=== PATIENT | male | born 1950 | race Caucasian/White ===

== ENCOUNTER → 2020-01-16 15:36 | Outpatient (CLI) | payer MEDICARE, SELFPAY ==
--- NOTE | 2020-01-16 | DI.MRI.S_ITS ---
PROCEDURE: MR KNEE LT WO CON INDICATIONS: internal derangement of left knee TECHNIQUE: Noncontrast sagittal PD fast spin echo and T2 fast spin echo with fat saturation, sagittal 3-D FLASH with fat saturation; coronal T1 spin echo and PD fast spin echo with fat saturation, and axial PD fast spin echo with fat saturation through the knee. COMPARISON: None. FINDINGS: Image quality: Excellent. Menisci: There is mild intrasubstance degeneration and free edge fibrillation and the body of the medial meniscus without a definite tear. Intrasubstance degeneration is also seen in the body of the lateral meniscus without definite extension to an articular surface. There is no significant meniscal extrusion. Cruciate ligaments: There is mild mucoid degeneration of the anterior cruciate ligament. The posterior cruciate ligament is intact. Medial structures: The medial collateral ligament appears intact. The semimembranosus tendon insertions and meniscocapsular junction appear intact. Visualized portions of the pes anserinus tendons appear normal. No abnormal bursal fluid. Lateral structures: The lateral collateral ligament, long and short heads of the biceps femoris tendon appear intact. The popliteus tendon appears intact. No signs of posterolateral corner injury. Iliotibial band appears normal. Anterior structures: The quadriceps and patellar tendons appear intact. Patellar alignment is normal. No femoral trochlear dysplasia or ventral trochlear prominence. No edema in the infrapatellar fat pad. Bones and cartilage: No acute trabecular bone injury. Mild generalized partial thickness cartilage thinning is seen in the weight-bearing portion of the medial femorotibial compartment. The lateral compartment articular cartilage is maintained. Full-thickness cartilage loss is seen in the lateral femoral trochlea with subchondral cystic changes. Additional full-thickness cartilage loss is seen in the median ridge the patella in the adjacent portions of the medial and lateral patellar facets with subchondral edema. Joint space: A small joint effusion is present. There is a trace medial popliteal cyst. A small amount of fluid is seen tracking along the popliteus tendon sheath. Nonspecific subcutaneous edema is seen in the prepatellar soft tissues. Mild varicose veins are noted in the posterolateral subcutaneous tissues. IMPRESSION: 1. Full-thickness cartilage loss in the anterior compartment with subchondral cystic changes and edema. Mild partial-thickness cartilage thinning is seen in the medial compartment. 2. 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 Intrasubstance degeneration is also seen in the lateral meniscus. No definite meniscal tear seen. 3. Mild mucoid degeneration of the anterior cruciate ligament. 4. Small joint effusion. Dictated by: Arturo Savage M.D. on 01/16/2020 at 16:56 Approved by: Arturo Savage M.D. on 01/16/2020 at 17:02
== END ==
PROVIDERS: Referring Provider Orthopaedic Surgery; Visit Provider Orthopaedic Surgery
DX: M23.92 Unspecified internal derangement of left knee (principal); M25.462 Effusion, left knee
CPT/HCPCS: 73721